=== PATIENT | male | born 1985 | race Caucasian/White ===

== ENCOUNTER 2022-12-20 18:43 | Emergency (ER) | payer OTHER, BC, SELFPAY ==
[2022-12-20 18:49] VITALS: BP 151/103; PULSE 75; RESP 16; TEMP 36.6; O2SAT 97; BMI 29.8
--- NOTE | 2022-12-20 19:13 | HMH.EDGENADL ---
Discharge Plan Disposition Patient Disposition: Xfer Short-Term Hosp Condition: Good Referrals Follow up/Referrals: Provider,Referral, [Primary Care Provider] - See instructions Activity Restrictions/Add. Instructions Additional Instructions/Restrictions: Please proceed to [facility] for evaluation of your eye. [address] [place] [address] Clinical Impressions Clinical Impression: Foreign body in cornea, right eye, initial encounter Discharge ED Provider: Angelique Leos General Adult HPI General Chief complaint: Eye Problems Stated complaint: [id number] FO in right eye,home accident Time Seen by Provider: 12/20/22 18:54 Mode of Arrival: Ambulatory Source of Information: Patient Limitations: No Limitations Description of Symptoms (Recalled from ER Triage Doc. by RN): Pt arrives via POV d/t possible foreign body to right eye after sharping lawnmower blades yesterday. +Swelling, pain, & erythema History of Present Illness HPI narrative: This patient is a 37-year-old male presenting to the emergency department with concern for foreign body in his right eye. He was sharpening lawnmower blade yesterday when he feels a piece of steel went into his right eye. Since then, he has had strong foreign body sensation, eye pain, and photophobia. He denies any visual changes. He is not a contact lens wearer and does not wear glasses. He does not follow regularly with a doctor, but denies any significant medical problems. He denies any other concerns. Related Data Allergies Allergy/AdvReac Type Severity Reaction Status Date / Time No Known Allergies Allergy Verified 12/20/22 18:52 [facility] Disclaimer: The information contained in this section may have been updated after the patient was seen, as this information can be updated by other users. Social History Smoking Status: Current every day smoker alcohol intake: never current occupational status: employed Travel in the last 8 weeks: None ROS Obtained: Yes All systems reviewed & no additional complaints except as documented 14 point review of systems obtained and negative except as mentioned in HPI. Physical Exam General General appearance: alert and in no apparent distress Head Head exam: atraumatic and normocephalic Eye Eye exam: Present EOMI and conjunctival redness Expanded Eye Exam Eyelids: bilateral: normal inspection Pupils: Bilateral: regular, round Sclera/Conjunctival: right: injection and hemorrhage (Punctate foreign body medial to the right pupil above n the iris) ENT ENT exam: Present normal exam and normal oropharynx Neck Neck exam: Present normal inspection and full ROM Chest Chest inspection: Present normal inspection and symmetric chest wall rise Respiratory Respiratory exam: Present normal lung sounds bilaterally; Absent respiratory distress, wheezes or stridor Cardiovascular Cardiovascular exam: Present regular rate and normal rhythm Abdominal Exam Abdominal exam: Present soft; Absent distention, tenderness or guarding Extremities Exam Extremities exam: Present normal inspection and full ROM Back Exam Back exam: Present normal inspection and full ROM; Absent tenderness Neurological Exam Neurological exam: Present alert and oriented X3 Psychiatric Psychiatric exam: Present normal affect and normal mood Skin Skin exam: Present warm and dry Lymphatic Lymphatic Findings: no adenopathy Medical Decision Making Medical Records Medical records reviewed: Yes I reviewed the patient's medical records. Rubio Inquiry Pt receiving controlled substance: No Vital Signs: 12/20/22 18:49 Temperature 97.9 F Temperature Source Oral Pulse Rate [Right] 75 Respiratory Rate 16 Blood Pressure [Right Arm] 151/103 H Blood Pressure Mean [Right Arm] 119 02 Sat by Pulse Oximetry 97 Oxygen Delivery Method Room Air Orders (Tests/Meds): ED MEDICATION
--- NOTE | 2022-12-20 19:20 | PC.NURSE ---
called [facility] for pt consult
[2022-12-20 20:03] VITALS: BP 151/100; PULSE 71; RESP 16; TEMP 36.6; O2SAT 97
== END 2022-12-20 20:04 | disposition short-term general hospital (02) ==
PROVIDERS: Emergency Provider Emergency Medicine
DX: T15.01XA Foreign body in cornea, right eye, initial encounter (principal); F17.200 Nicotine dependence, unspecified, uncomplicated; Z23 Encounter for immunization; W26.8XXA Contact with other sharp object(s), not elsewhere classified, initial encounter
CPT/HCPCS: 90471; 90715; 96372; 99285